=== PATIENT | female | born 1995 | race Caucasian/White ===

== ENCOUNTER 2017-08-28 18:51 | Emergency (ER) | payer SELFPAY ==
[2017-08-28 20:03] LABS: Bilirubin Negative (Negative); Blood, Urine Large (Negative); Clarity TURBID (Clear); Glucose, Urine (Dipstick) Negative (Negative); Leukocyte Large (Negative); Nitrite Negative (Negative); Protein, Urine (Dipstick) 100 mg/dL (Neg-Trace); Specific Gravity, Urine 1.025 (1.002-1.036)
[2017-08-28 20:05] LABS: RBC/HPF GREATER THAN 50-TNTC HPF (0-3); Squamous Epithelial 0-3 HPF (0-3)
[2017-08-28 20:06] LABS: Pathc Cast-AUWi Flag 9.06 (0-2.49)
[2017-08-28 20:17] LABS: Bacteria/HPF 1+ HPF (None Seen); Crystals/HPF 1+ CA OXALATE HPF (Negative); Hyaline Casts/LPF 0-3 HYALINE CAST LPF (0-3 Hyaline); Manual Microscopic Reviewed? No Path Casts Seen
[2017-08-28 20:18] LABS: Renal Epithelial 0-3 HPF (0-3)
== END 2017-08-28 20:54 | disposition home or self-care (01) ==
LOC: ERS 18:51
DX: N39.0 Urinary tract infection, site not specified (principal); F17.210 Nicotine dependence, cigarettes, uncomplicated
CPT/HCPCS: 81003; 81015; 87086; 99283

== ENCOUNTER 2019-02-03 18:37 | Emergency (ER) | payer SELFPAY ==
[2019-02-03 19:40] LABS: Pregnancy Test - Urine (BHCG) Negative (Negative); Pregu Control Background? CLEAR/WHITE (CLR/WHITE); Pregu Control Bar Appear? YES (CONTROL BAR); Specific Gravity 1.019 (1.002-1.036)
[2019-02-03 19:43] LABS: Bilirubin Negative (Negative); Blood, Urine 2+ (Negative); Clarity Turbid (Clear); Glucose, Urine (Dipstick) Normal (Negative); Leukocyte 250 Leu/uL (Negative); Nitrite Negative (Negative); Protein, Urine (Dipstick) Negative (Neg-Trace); Squamous Epithelial 0-3 HPF (0-3); Urobilinogen Normal mg/dL (Less than 2); WBC/HPF Greater than 50 HPF (0-3)
[2019-02-03 19:50] LABS: Bacteria/HPF None Seen HPF (None Seen)
== END 2019-02-03 20:27 | disposition home or self-care (01) ==
LOC: ERS 18:37
DX: N39.0 Urinary tract infection, site not specified (principal); F17.210 Nicotine dependence, cigarettes, uncomplicated
CPT/HCPCS: 81003; 81015; 81025; 87086; 99283

== ENCOUNTER 2019-06-29 17:46 | Emergency (ER) | payer SELFPAY ==
[2019-06-29 18:28] LABS: Bacteria/HPF 4+ HPF (None Seen); Bilirubin Negative (Negative); Blood, Urine 2+ (Negative); Clarity Turbid (Clear); Glucose, Urine (Dipstick) Normal (Negative); Leukocyte 500 Leu/uL (Negative); Nitrite 1+ (Negative); Protein, Urine (Dipstick) 100 mg/dL (Neg-Trace); RBC/HPF Greater than 50 HPF (0-3); Squamous Epithelial 0-3 HPF (0-3); Urobilinogen Normal mg/dL (Less than 2); WBC/HPF Greater than 50 HPF (0-3)
[2019-06-29 19:17] LABS: #Basophils 0.1 thou/uL (0.0-0.2); #Eosinphils 0.2 thou/uL (0.0-0.7); #Lymphocytes 1.7 thou/uL (1.20-3.40); #Monocytes 0.7 thou/uL (0.11-0.59); #Neutrophils 11.9 thou/uL (1.40-6.50); %Basophils 0.5 % (0.0-1.0); %Eosinophils 1.6 % (0.0-10.0); %Lymphocytes 11.5 % (21.0-51.0); %Monocytes 4.5 % (0.0-10.0); %Neutrophils 81.9 % (42.0-75.0); Hemoglobin 13.9 g/dL (12.0-16.0); Mean Corpuscular HGB CONC 32.7 g/dL (32.0-36.0); Mean Corpuscular Hemoglobin 26.6 pg (27.0-31.0); Mean Corpuscular Volume 81.3 fL (78.0-98.0); Mean Platelet Volume 8.4 fL (7.4-10.4); Platelet Count 276 thou/uL (130-400); RBC Distribution Width 13.2 % (11.5-14.5); Red Blood Cell (RBC) Count 5.21 mill/uL (4.20-5.40); White Blood Cell (WBC) Count 14.5 thou/uL (4.8-10.8)
[2019-06-29 19:39] LABS: ALT (SGPT) 15 U/L (8-55); AST (SGOT) 14 U/L (5-34); Albumin 3.5 g/dL (3.5-5.0); Alkaline Phosphatase 88 U/L (40-110); Anion Gap 11 mmol/L (10-20); BUN (Urea Nitrogen) 8 mg/dL (7.0-18.7); Bilirubin, Total 0.3 mg/dL (0.2-1.2); Calc. Creatinine Clearance 0 mL/min (70-130); Calcium 8.8 mg/dL (7.8-10.44); Carbon Dioxide 28 mmol/L (22-29); Chloride 104 mmol/L (98-107); Estimated GFR-MDRD 77; Globulin 2.5 g/dL (2.4-3.5); Glucose 93 mg/dL (70-105); Potassium 3.7 mmol/L (3.5-5.1); Sodium 139 mmol/L (136-145)
[2019-06-29] MEDS ORDERED: Ketorolac Tromethamine 30 MG/ML VIAL ONE (21:31)
[2019-06-29] MEDS ORDERED: Acetaminophen 500 MG TAB ONE (21:31)
[2019-06-29] MEDS ORDERED: Acetaminophen 325 MG TAB ONE (21:33)
[2019-06-29] MEDS ORDERED: HYDROcodone/Acetaminophen 10/325 mg Tablet ONE (21:38)
== END 2019-06-29 22:08 | disposition home or self-care (01) ==
LOC: ERS 17:46
DX: N12 Tubulo-interstitial nephritis, not specified as acute or chronic (principal); F17.210 Nicotine dependence, cigarettes, uncomplicated
CPT/HCPCS: 36415; 80053; 81003; 81015; 85025; 96372; 99284; J1885

== ENCOUNTER 2024-05-18 15:17 | Emergency (ER) | payer OTHER, SELFPAY ==
[2024-05-18] MEDS ORDERED: predniSONE 20 MG TAB ONE (17:50)
[2024-05-18] MEDS ORDERED: Ketorolac Tromethamine 30 MG (1 mL) VIAL ONE (17:50)
== END 2024-05-18 18:25 | disposition home or self-care (01) ==
LOC: ERS 15:17
DX: R05.9 Cough, unspecified (principal); F17.210 Nicotine dependence, cigarettes, uncomplicated
CPT/HCPCS: 71046; 87081; 87428; 87430; 96372; J1885; J7512